=== PATIENT | female | born 1955 | race African-American/Black ===

== ENCOUNTER 2017-05-21 19:50 | Emergency (ER) | payer MEDICARE ==
[~2017-05-21] VITALS: Ht 162.6 cm; Wt 87.1 kg
[2017-05-21] MEDS ORDERED: Ketorolac 60mg Inj IM ONE (20:15)
[2017-05-21] MEDS ORDERED: Tylenol #3 tab (300mg/30mg) ORAL ONE (20:30)
[2017-05-21] MEDS ORDERED: ROBAXIN-750750 MG PO (20:39)
[2017-05-21] MEDS ORDERED: ACETAMINOPHEN-1 EAC1 ORAL (20:39)
[2017-05-21] MEDS ORDERED: IBUPROFEN600 MG ORAL (20:39)
[2017-05-21 20:44] VITALS: BP 178/85
--- NOTE | 2017-05-23 08:36 | Emergency Room Report ---
History of Present Illness General Chief Complaint: Lower Back Pain or Injury Source: Patient Present Illness HPI Patient just with complaints of right low back pain initially reports of flank pain as well However on discussion patient mainly complains of low back pain 2 days ago patient was attempting to stand up when she did And to the step she felt increased pain in that region Denies any vomiting or diarrhea Denies any abdominal pain denies any dysuria frequency Denies any focal weakness Patient has history of kidney stones however this feels different Allergies: Coded Allergies: No Known Allergies (Unverified , 05/21/17) Patient History Past Medical History: see triage record Pertinent Family History: none Last Menstrual Period: none Now: No Reviewed Nursing Documentation: PMH: Agreed, PSxH: Agreed Review of Systems All Other Systems: negative except mentioned in HPI Physical Exam Vital Signs Date Time Temp Pulse Resp B/P (MAP) Pulse Ox O2 Delivery O2 Flow Rate FiO2 05/21/17 19:54 98.4 76 18 178/85 98 Sp02 EP Interpretation: reviewed, normal General Appearance: alert, GCS 15 Head: normocephalic, atraumatic Eyes: bilateral eye PERRL, bilateral eye EOMI ENT: hearing grossly normal, normal pharynx Neck: full range of motion, supple, thyroid normal Respiratory: lungs clear Cardiovascular #1: regular rate, rhythm, no edema Gastrointestinal: non tender, soft Genitourinary: no CVA tenderness Musculoskeletal: other - Patient is localized discomfort to the right posterior superior iliac crest on palpation, no midline discomfort, range of motion intact otherwise Neurologic: alert, oriented x3, 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 Skin: normal color, no rash Medical Decision Making Diagnostic Impression: Primary Impression: Low back pain ER Course Patient's clinical exam is appropriate for what appears to be likely sciatic pain Patient is treated symptomatically Does not appear neurologically compromised And otherwise stable for close outpatient followup Last Vital Signs Date Time Temp Pulse Resp B/P (MAP) Pulse Ox O2 Delivery O2 Flow Rate FiO2 05/21/17 20:44 98.4 18 178/85 98 05/21/17 19:54 76 Status: improved Disposition: HOME, SELF-CARE Condition: Stable Scripts Methocarbamol* (ROBAXIN-750*) 750 Mg Tablet 750 MG PO TID, #21 TAB 0 Refills Prov: NABILA OTOOLE DMarleny 05/21/17 Acetaminophen With Codeine (T#3) (TYLENOL #3 TAB*) Y Tab 1 TAB ORAL Q8H Y for For Pain, #10 TAB Prov: NABILA OTOOLE D.O. 05/21/17 Ibuprofen* (MOTRIN*) 600 Mg Tablet 600 MG ORAL Q8H Y for For Pain, #20 TAB 0 Refills Prov: NABILA OTOOLE D.O. 05/21/17 Referrals: GAVIN CLEMENT MD (PCP) Patient Instructions: Back Pain, Adult, Sciatica, [id number] Additional Instructions: Patient is provided with the discharge instructions notified to follow up with primary doctor in the next 2-3 days otherwise return to the er with any worsening symptoms. Please note that this report is being documented using [employer] technology. This can lead to erroneous entry secondary to incorrect interpretation by the dictating instrument. NABILA OTOOLE D.O. May 23, 2017 08:36
== END 2017-05-21 20:50 | disposition home or self-care (01) ==
LOC: EMR 20:48
DX: M54.5 Low back pain (principal); Z87.442 Personal history of urinary calculi
CPT/HCPCS: 96372; 99283